=== PATIENT | male | born 1970 | race Caucasian/White ===

== ENCOUNTER → 2018-04-04 | Outpatient (CLI) | payer OTHER, BC ==
[~2018-04-04] MED LIST: ACET-1256 PO; B-CO1CAP5 PO; DUTA0.5C PO; HYDR-5688 PO; OMEG10007 PO
== END | disposition home or self-care (01) ==
LOC: C.RDSM 11:07
PROVIDERS: ATTEND Physician Assistant
DX: Z98.890 Other specified postprocedural states (principal)